=== PATIENT | female | born 1990 ===

== ENCOUNTER 2023-02-21 09:09 | Inpatient (IN) | payer OTHER ==
[~2023-02-21] VITALS: Ht 170.2 cm; Wt 100.2 kg
[2023-02-22] MEDS ORDERED: IRON PO (12:37)
[2023-02-22] MEDS ORDERED: PRENATABS FA T1 EACH PO (12:37)
[2023-02-27] MEDS ORDERED: IRON18 MG PO (10:39)
== END 2023-03-01 14:55 | disposition home or self-care (01) | DRG 788 ==
LOC: O/R 02-27 07:28 → OB/GYN 02-27 07:28
PROVIDERS: ADMIT Obstetrics & Gynecology; ATTEND Obstetrics & Gynecology
PROC: 4A1HXCZ Monitoring of Products of Conception, Cardiac Rate, External Approach (ICD-10-PCS; 2023-02-27)
PROC: 10D00Z1 Extraction of Products of Conception, Low, Open Approach (ICD-10-PCS; principal; 2023-02-27 11:45)
DX: O32.1XX0 Maternal care for breech presentation, not applicable or unspecified (principal); Z3A.39 39 weeks gestation of pregnancy; Z37.0 Single live birth; Z20.822 Contact with and (suspected) exposure to COVID-19